=== PATIENT | female | born 1990 | race Caucasian/White ===

== ENCOUNTER 2019-11-28 06:01 | Emergency (ER) | payer OTHER ==
[~2019-11-28] VITALS: Ht 177.8 cm; Wt 99.8 kg
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
[2019-11-28] MEDS ORDERED: ONDANSETRON HCL/PF 4 MG/2 ML VIAL ONE (06:27)
[2019-11-28] MEDS ORDERED: LIDOCAINE VISCOUS 2% UD 15 ML UDC ONE (06:27)
[2019-11-28] MEDS ORDERED: MAG HYDROX/AL HYDROX/SIMETH 30 ML UDC ONE (06:27)
[2019-11-28] MEDS ORDERED: MAG HYDROX/AL HYDROX/SIMETH 30 ML UDC PO ONE (06:30)
[2019-11-28] MEDS ORDERED: IV NS 0.9% 1,000 ML BAG IV ONE (06:30)
[2019-11-28] MEDS ORDERED: LIDOCAINE VISCOUS 2% UD 15 ML UDC MM ONE (06:30)
[2019-11-28] MEDS ORDERED: ONDANSETRON HCL/PF 4 MG/2 ML VIAL IVP ONE (06:30)
--- NOTE | 2019-11-28 06:30 | NUR ---
URINE COLLECTED AND SENT TO LAB
--- NOTE | 2019-11-28 06:40 | NUR ---
PROCESS HELPER AT BEDSIDE FOR LABS.
[2019-11-28 06:56] LABS: CARBON DIOXIDE 25 mmol/L (21-32); CHLORIDE 102 mmol/L (98-107); CREATININE 0.8 mg/dL (0.6-1.3); GLUCOSE 111 mg/dL (74-106); POTASSIUM 3.9 mmol/L (3.5-5.1); SODIUM SERUM 134 mmol/L (136-145); UREA NITROGEN, BLOOD 9 mg/dL (7-18)
[2019-11-28 06:59] LABS: APPEARANCE,URINE SL CLOUDY (CLEAR); BILIRUBIN,URINE NEGATIVE (NEGATIVE); BLOOD, URINE NEGATIVE Ery/uL (NEGATIVE); COLOR,URINE DARK YELLO (YELLOW); KETONES,URINE NEGATIVE (NEGATIVE); LEUKOCYTE ESTERASE ,URINE NEGATIVE (NEGATIVE); NITRITE, URINE NEGATIVE (NEGATIVE); PH,URINE 5.5 (5.0-8.0); PROTEIN,URINE NEGATIVE (NEGATIVE); UGLUCOSE NEGATIVE (NEGATIVE); UROBILINOGEN,URINE 0.2 EU/dL (0.2)
[2019-11-28 07:02] LABS: ALANINE AMINOTRANSFERASE 25 U/L (12-78); ALBUMIN 3.7 g/dL (3.4-5.0); ALKALINE PHOSPHATASE 57 U/L (46-116); ASPARTATE AMINOTRANSFERASE 16 U/L (15-37); BILIRUBIN,TOTAL 0.3 mg/dL (0.2-1.0); LIPASE 254 U/L (73-393); TOTAL PROTEIN, SERUM 7.2 g/dL (6.4-8.2)
[2019-11-28 07:15] LABS: BASOPHILS # (AUTO) 0.1 /CMM (0.0-0.2); BASOPHILS % (AUTO) 0.9 % (0.0-2.0); EOSINOPHILS % (AUTO) 2.5 % (0.0-6.0); HEMATOCRIT 40 % (33-45); HEMOGLOBIN 13.1 g/dL (11.5-14.8); LYMPHOCYTES # (AUTO) 2.9 /CMM (0.8-4.8); LYMPHOCYTES % (AUTO) 29.2 % (20.0-44.0); MEAN CORPUSCULAR HGB CONC 33 g/dl (31.0-36.0); MEAN CORPUSCULAR VOLUME 87 fL (82-100); MONOCYTES # (AUTO) 1.1 /CMM (0.1-1.30); MONOCYTES % (AUTO) 10.9 % (2.0-12.0); NEUTROPHILS # (AUTO) 5.7 /CMM (1.8-8.9); NEUTROPHILS % (AUTO) 56.5 % (43.0-81.0); PLATELET COUNT (AUTO) 303 /CMM (150-450); RED BLOOD CELL COUNT(AUTO) 4.53 MIL/uL (4.0-5.2); WHITE BLOOD COUNT (AUTO) 10.1 K/uL (4.3-11.0)
[2019-11-28 07:37] VITALS: BP 125/88
--- NOTE | 2019-11-28 07:37 | NUR ---
Patient discharged to home in stable condition. Written and verbal after care instructions given. Patient verbalizes understanding of instruction.
--- NOTE | 2019-11-28 07:37 | NUR ---
IV removed. Catheter intact and site benign. Pressure and 4x4 applied to site. No bleeding noted.
== END 2019-11-28 07:38 | disposition home or self-care (01) ==
LOC: ER 06:04
DX: K29.00 Acute gastritis without bleeding (principal); G43.909 Migraine, unspecified, not intractable, without status migrainosus; Z88.2 Allergy status to sulfonamides; Z88.8 Allergy status to other drugs, medicaments and biological substances
CPT/HCPCS: 36415; 71045; 80048; 80076; 81001; 83690; 84484; 84703; 85025; 96361; 96374; 99284; J2405; J7030; 81000-TC

== ENCOUNTER 2020-07-29 12:48 | Emergency (ER) | payer OTHER ==
[~2020-07-29] VITALS: Ht 177.8 cm; Wt 149.7 kg
--- NOTE | 2020-07-29 13:04 | NUR ---
BIBS FROM HOME TO ER BED 7. AAOX4. NOT IN RESP DISTRESS. AMBULATORY. CAME IN FOR MIGRAINE HEADACHE. PER PT PAIN MAINY LOCATED ON THE LEFT FRONTAL, 02/17. PT REPORTS NAUSEA AND TOOK ZOFRAN 2 HRS AGO BUT STILL IS NAUSEOUS. PT ISPROVIDED A DARK ENVIRONMENT FOR LIGHT AGGREVATES THE PAIN.
[2020-07-29] MEDS ORDERED: KETOROLAC TROMETHAMINE 15 MG/ML VIAL ONE (13:08)
[2020-07-29] MEDS ORDERED: diphenhydrAMINE HCL 50 MG/ML VIAL ONE (13:08)
[2020-07-29] MEDS ORDERED: METOCLOPRAMIDE HCL 10 MG/2 ML VIAL ONE (13:09)
--- NOTE | 2020-07-29 13:20 | NUR ---
URINE SENT TO LAB
[2020-07-29] MEDS: diphenhydrAMINE HCL 50 MG/ML VIAL IV ONE (13:22)
[2020-07-29] MEDS: METOCLOPRAMIDE HCL 10 MG/2 ML VIAL IV ONE (13:22)
[2020-07-29] MEDS: IV NS 0.9% 1,000 ML IV ONE (13:22)
[2020-07-29] MEDS ORDERED: ZOLM5TAB PO (13:42)
[2020-07-29] MEDS ORDERED: IBUP-1955 PO (13:42)
[2020-07-29] MEDS: KETOROLAC TROMETHAMINE INJ 30 MG/ML VIAL IV ONE (14:04)
--- NOTE | 2020-07-29 14:17 | NUR ---
Pt is marked for discharge but pt is still having headache that is still the same. made aware. receiced order to give depacon and decadron.
[2020-07-29] MEDS ORDERED: DEXAMETHASONE SOD PHOSPHATE 10 MG/ML VIAL ONE (14:18)
[2020-07-29] MEDS: DEXAMETHASONE SOD PHOSPHATE 10 MG/ML VIAL IV ONE (14:25)
[2020-07-29] MEDS: VALPROATE 500 MG in IV D5W 100 ML IV STA (14:31)
--- NOTE | 2020-07-29 14:31 | NUR ---
PT IS RECEIVING IV AT THIS TIME
--- NOTE | 2020-07-29 15:28 | NUR ---
PROVIDER AT BEDSIDE TALKING TO PT.
[2020-07-29] MEDS ORDERED: SUMATRIPTAN SUCCINATE 6 MG/0.5 ML VIAL SQ ONE (16:11)
[2020-07-29] MEDS: SUMATRIPTAN SUCCINATE 6 MG/0.5 ML VIAL SQ ONE (16:16)
[2020-07-29 16:39] VITALS: BP 133/82
== END 2020-07-29 16:39 | disposition home or self-care (01) ==
LOC: ER 12:52
DX: G43.909 Migraine, unspecified, not intractable, without status migrainosus (principal); R11.2 Nausea with vomiting, unspecified; Z88.8 Allergy status to other drugs, medicaments and biological substances
CPT/HCPCS: 84703; 96361; 96365; 96372; 96375; 99284; J1100; J1200; J1885; J2765; J3030; J3490; J7030; J7060

== ENCOUNTER 2022-07-24 19:14 | Emergency (ER) | payer OTHER ==
[~2022-07-24] VITALS: Ht 177.8 cm; Wt 117.9 kg
[~2022-07-24 19:14] MED LIST: IBUP-1955 PO; ZOLM5TAB PO
[2022-07-24] MEDS ORDERED: KETOROLAC TROMETHAMINE INJ 30 MG/ML VIAL ONE (21:56)
[2022-07-24] MEDS: KETOROLAC TROMETHAMINE INJ 60 MG/2 ML VIAL IM ONE (21:59)
[2022-07-25] MEDS ORDERED: IBUP-1955 PO
[2022-07-25 01:31] VITALS: BP 138/98
== END 2022-07-25 01:31 | disposition home or self-care (01) ==
LOC: ER 19:18
DX: S93.492A Sprain of other ligament of left ankle, initial encounter (principal); I47.1 Supraventricular tachycardia; Z79.899 Other long term (current) drug therapy; W10.9XXA Fall (on) (from) unspecified stairs and steps, initial encounter; Y93.89 Activity, other specified; Y92.89 Other specified places as the place of occurrence of the external cause; Y99.8 Other external cause status
CPT/HCPCS: 99285; 73700; 96372; 73610 ×2; 73630; 84703; J1885